=== PATIENT | male | born 1985 | race Asian ===

== ENCOUNTER 2019-04-13 15:42 | Outpatient (CLI) | payer OTHER | END 2019-04-13 15:45 | disposition short-term general hospital (02) | LOC: AMB 15:42 | DX: R53.1 Weakness (principal); E86.0 Dehydration | CPT/HCPCS: A0425; A0427 ==

== ENCOUNTER 2019-04-13 15:56 | Emergency (ER) | payer OTHER ==
[~2019-04-13] VITALS: Ht 180.3 cm; Wt 72.6 kg
[2019-04-13 16:30] LABS: PLATELET COUNT 281 K/uL (142-355)
[2019-04-13 16:35] LABS: POTASSIUM 2.8 mmol/L (3.6-5.2)
[2019-04-13 19:18] VITALS: BP 138/72; TEMP 98.2
== END 2019-04-13 19:24 | disposition home or self-care (01) ==
LOC: ED 15:56
PROVIDERS: Family Medicine
DX: F10.20 Alcohol dependence, uncomplicated (principal); E87.6 Hypokalemia; F15.90 Other stimulant use, unspecified, uncomplicated; E16.2 Hypoglycemia, unspecified
CPT/HCPCS: 80053; 80307; 80320; 81000; 82150; 83690; 85027; 96360; 96365; 96375; 99284; J2405; J7060

== ENCOUNTER 2020-11-11 00:33 | Emergency (ER) | payer OTHER ==
[~2020-11-11] VITALS: Ht 180.3 cm; Wt 70.3 kg
[2020-11-11 02:03] VITALS: BP 124/84; TEMP 98.5
== END 2020-11-11 02:01 | disposition home or self-care (01) ==
LOC: ED 00:33
DX: S20.211A Contusion of right front wall of thorax, initial encounter (principal); W18.39XA Other fall on same level, initial encounter; Y92.89 Other specified places as the place of occurrence of the external cause
CPT/HCPCS: 96372; 99283; J1885

== ENCOUNTER 2021-04-15 11:23 | Emergency (ER) | payer OTHER ==
[~2021-04-15] VITALS: Ht 180.3 cm; Wt 62.1 kg
[2021-04-15 12:16] LABS: PLATELET COUNT 209 K/uL (142-355)
[2021-04-15 12:30] LABS: PARTIAL THROMBOPLASTIN TIME 22.3 SECONDS (24.5-33.6)
[2021-04-15 12:36] LABS: POTASSIUM 3.9 mmol/L (3.6-5.2); SODIUM 142 mmol/L (136-145)
[2021-04-15 14:15] VITALS: BP 105/64; TEMP 97.8
== END 2021-04-15 14:15 | disposition home or self-care (01) ==
LOC: ED 11:26
PROVIDERS: Hospitalist
DX: F10.129 Alcohol abuse with intoxication, unspecified (principal); Y90.8 Blood alcohol level of 240 mg/100 ml or more; K29.70 Gastritis, unspecified, without bleeding; J40 Bronchitis, not specified as acute or chronic; F17.210 Nicotine dependence, cigarettes, uncomplicated
CPT/HCPCS: 80053; 80320; 81000; 81002; 82150; 82550; 83690; 83880; 84484; 85027; 85610; 85730; 93005; 96360; 96365; 96375; 99284; J0696; J2405

== ENCOUNTER 2021-06-26 05:35 | Emergency (ER) | payer OTHER ==
[~2021-06-26] VITALS: Ht 180.3 cm; Wt 64.4 kg
[2021-06-26 06:06] VITALS: TEMP 98.8
[2021-06-26 06:28] LABS: PLATELET COUNT 258 K/uL (142-355)
[2021-06-26 08:00] VITALS: BP 110/78
== END 2021-06-26 08:45 | disposition home or self-care (01) ==
LOC: ED 05:35
PROVIDERS: Hospitalist
DX: R07.89 Other chest pain (principal); W22.8XXA Striking against or struck by other objects, initial encounter; Y93.H9 Activity, other involving exterior property and land maintenance, building and construction; Y92.096 Garden or yard of other non-institutional residence as the place of occurrence of the external cause
CPT/HCPCS: 80053; 82150; 83690; 85027; 96360; 96375; 99284; J1170; J1885; J2405; Q9963

== ENCOUNTER 2022-04-27 13:16 | Emergency (ER) | payer OTHER ==
[~2022-04-27] VITALS: Ht 180.3 cm; Wt 67.1 kg
[2022-04-27 13:18] VITALS: TEMP 98
[2022-04-27 14:21] LABS: POTASSIUM 3.6 mmol/L (3.6-5.2)
[2022-04-27 14:26] LABS: PLATELET COUNT 311 K/uL (142-355)
[2022-04-27 16:40] VITALS: BP 122/84
== END 2022-04-27 16:40 | disposition home or self-care (01) ==
LOC: ED 13:16
PROVIDERS: Emergency Medicine Emergency Medical Services
DX: F10.129 Alcohol abuse with intoxication, unspecified (principal); Y90.7 Blood alcohol level of 200-239 mg/100 ml; R10.84 Generalized abdominal pain; Z20.822 Contact with and (suspected) exposure to COVID-19
CPT/HCPCS: 80053; 80307; 80320; 81002; 82150; 83690; 83735; 84484; 85027; 85379; 87502; 87635; 87651; 93005; 96360; 96375; 99284; J2405; J3490; Q9963; U0003

== ENCOUNTER 2022-05-15 00:01 | Emergency (ER) | payer OTHER ==
[~2022-05-15] VITALS: Ht 177.8 cm; Wt 67.1 kg
[2022-05-15 00:41] LABS: POTASSIUM 3.3 mmol/L (3.6-5.2)
[2022-05-15 00:46] LABS: PLATELET COUNT 237 K/uL (142-355)
[2022-05-15 07:00] VITALS: BP 102/71; TEMP 98.1
== END 2022-05-15 07:00 | disposition home or self-care (01) ==
LOC: ED 00:01
PROVIDERS: Emergency Medicine
DX: F10.129 Alcohol abuse with intoxication, unspecified (principal); Y90.7 Blood alcohol level of 200-239 mg/100 ml; R07.89 Other chest pain
CPT/HCPCS: 36415; 80053; 80307; 80320; 84484; 85027; 93005; 96365; 96375; 99284; J3411; J3475; J3490

== ENCOUNTER 2022-07-14 06:33 | Observation (INO) | payer OTHER ==
[2022-07-14] VITALS (7 sets, daily range): BP systolic 13–158; BP diastolic 62–112; TEMP 98–98.7; Ht 177.8 cm; Wt 60.5 kg
[~2022-07-14] VITALS: Ht 177.8 cm; Wt 60.5 kg
[2022-07-14 07:04] LABS: PLATELET COUNT 249 K/uL (142-355)
[2022-07-14 07:08] LABS: POTASSIUM 3.8 mmol/L (3.6-5.2)
[2022-07-14 07:43] LABS: PARTIAL THROMBOPLASTIN TIME 24.2 SECONDS (24.5-33.6)
[2022-07-15] VITALS: BP 118/67; TEMP 98.3
[2022-07-15 04:00] VITALS: BP 124/82; TEMP 98.4
== END 2022-07-15 09:26 | disposition home or self-care (01) ==
LOC: ED 06:33 → MED/SURG 07:56
PROVIDERS: ADMIT Family Medicine; ATTEND Internal Medicine
DX: R07.89 Other chest pain (principal); M94.0 Chondrocostal junction syndrome [Tietze]; E11.9 Type 2 diabetes mellitus without complications
CPT/HCPCS: 80053; 80307; 81002; 82550; 82948; 83036; 84484; 85027; 85610; 85730; 87635; 93005; 96360; 96361; 96366; 96372; 96374; 96375; 96376; 99220; 99284; G0378; J1650; J1885; U0003

== ENCOUNTER 2022-08-22 16:07 | Emergency (ER) | payer OTHER ==
[~2022-08-22] VITALS: Ht 177.8 cm; Wt 60.3 kg
[2022-08-22 16:15] VITALS: BP 108/65; TEMP 97.8
== END 2022-08-22 18:40 | disposition home or self-care (01) ==
LOC: ED 16:07
PROC: 2W3RX1Z Immobilization of Left Lower Leg using Splint (ICD-10-PCS; principal; 2022-08-22)
DX: S82.62XA Displaced fracture of lateral malleolus of left fibula, initial encounter for closed fracture (principal); S82.55XA Nondisplaced fracture of medial malleolus of left tibia, initial encounter for closed fracture; S99.812A Other specified injuries of left ankle, initial encounter; X58.XXXA Exposure to other specified factors, initial encounter; Y93.44 Activity, trampolining; Y93.39 Activity, other involving climbing, rappelling and jumping off; Y92.89 Other specified places as the place of occurrence of the external cause
CPT/HCPCS: 96372; 99283; J1885; J2550

== ENCOUNTER 2023-05-08 09:37 | Emergency (ER) | payer OTHER ==
[~2023-05-08] VITALS: Ht 170.2 cm; Wt 67.1 kg
[2023-05-08 09:45] VITALS: TEMP 99
[2023-05-08 10:20] VITALS: BP 152/102
== END 2023-05-08 10:20 | disposition left against medical advice (07) ==
LOC: ED 09:37
DX: K02.9 Dental caries, unspecified (principal); I10 Essential (primary) hypertension
CPT/HCPCS: 99283

== ENCOUNTER 2023-05-09 06:24 | Emergency (ER) | payer OTHER ==
[~2023-05-09] VITALS: Ht 170.2 cm; Wt 64.4 kg
[2023-05-09 06:30] VITALS: BP 140/98; TEMP 98.2
== END 2023-05-09 07:30 | disposition home or self-care (01) ==
LOC: ED 06:24
DX: K08.89 Other specified disorders of teeth and supporting structures (principal); K04.7 Periapical abscess without sinus
CPT/HCPCS: 96372; 99282; J1885